=== PATIENT | male | born 1945 | race Caucasian/White ===

== ENCOUNTER 2016-11-19 23:56 | Emergency (ER) | payer MEDICARE, OTHER ==
[2016-11-20] MEDS ORDERED: PHENAZOPYRIDINE 100 MG TAB ONE (00:55)
== END 2016-11-20 04:57 | disposition home or self-care (01) ==
LOC: ER 23:56
CPT/HCPCS: 87077; 87186

== ENCOUNTER 2016-12-15 06:15 | Inpatient (IN) | payer MEDICARE, OTHER ==
[2016-12-13 14:17] VITALS: BMI 32.0
[2016-12-14 13:58] VITALS: BMI 32.0
[~2016-12-15] VITALS: Ht 167.6 cm; Wt 89.4 kg
[2016-12-15] VITALS (19 sets, daily range): BP systolic 94–128; RESP 12–21; TEMP 97.5–99.5; Ht 167.6 cm; Wt 89.4 kg
[~2016-12-15 06:15] MED LIST: LEVOFLOXACIN 500 MG/100 ML 100 ML IV ONE
[2016-12-15] MEDS ORDERED: GLYCOPYRROLATE 0.2 MG/ML VIAL IV ONE (07:00)
[2016-12-15] MEDS ORDERED: LACT RINGERS 1,000 ML IV SCH (07:00)
[2016-12-15] MEDS ORDERED: LIDOCAINE 1% BUFFERED 1 ML SYR INTRADERM PRN (07:00)
[2016-12-15] MEDS ORDERED: MIDAZOLAM 2 MG/2 ML INJ IV ONE (07:00)
[2016-12-15] MEDS ORDERED: MORPHINE 2 MG/ML SYR IV PRN (07:55)
[2016-12-15] MEDS ORDERED: MORPHINE 4 MG/ML SYR IV PRN (07:55)
[2016-12-15] MEDS ORDERED: ONDANSETRON 4 MG VIAL IV PRN ×2 (07:55→08:50)
[2016-12-15] MEDS ORDERED: DILAUDID 1 MG/ML AMP IV PRN ×2 (07:55→08:50)
[2016-12-15] MEDS ORDERED: OXYCODONE 5 MG TAB PO PRN (07:55)
[2016-12-15] MEDS ORDERED: MEPERIDINE 25 MG/ML IV PRN (07:55)
[2016-12-15] MEDS ORDERED: LEVOFLOXACIN 500 MG/100 ML 100 ML IV SCH (09:00)
[2016-12-15] MEDS: SODIUM CHLORIDE 0.45% 1,000 ML IV SCH ×2 (09:27→17:55)
[2016-12-15] MEDS ORDERED: PROPOFOL 50ML VIAL IV ONE (10:27)
[2016-12-15] MEDS ORDERED: FENTANYL 100 MCG/2 ML AMP IV ONE (10:27)
[2016-12-15] MEDS: OXYCODONE 5 MG TAB PO PRN ×2 (11:00→22:03)
[2016-12-15] MEDS: FOLIC ACID PO SCH (12:48)
[2016-12-15] MEDS: GABAPENTIN 600 MG TAB PO SCH ×3 (12:48→21:59)
[2016-12-15] MEDS: IRON PO SCH (12:48)
[2016-12-15] MEDS: LORATADINE 10 MG TAB PO SCH (12:48)
[2016-12-15] MEDS: CYANOCOBALAMIN PO SCH (12:48)
[2016-12-15] MEDS: CLOPIDOGREL 75 MG TAB PO SCH (12:48)
[2016-12-15] MEDS: Meclizine HCl 25 MG TAB PO SCH ×2 (12:48→21:57)
[2016-12-15] MEDS: LISINOPRIL/HCTZ 10/12.5 TAB PO SCH ×2 (12:48→21:58)
[2016-12-15] MEDS ORDERED: MISSING DOSE XX ONE (12:55)
[2016-12-15] MEDS: ASPIRIN 81 MG CHEW TAB PO SCH (13:51)
[2016-12-15] MEDS: METOPROLOL TART 25 MG TAB PO SCH (21:57)
[2016-12-15] MEDS: TAMSULOSIN 0.4 MG CAP PO SCH (21:57)
[2016-12-15] MEDS: Atorvastatin 10 MG TAB PO SCH (21:57)
[2016-12-15] MEDS: EZETIMIBE 10 MG TAB PO SCH (21:58)
[2016-12-15] MEDS: ZOLPIDEM 5 MG TAB PO PRN (23:12)
[2016-12-16] MEDS: SODIUM CHLORIDE 0.45% 1,000 ML IV SCH (02:58)
[2016-12-16 04:03] VITALS: BP_SYST 100; RESP 18; TEMP 98.8
[2016-12-16 07:59] VITALS: BP_SYST 120; RESP 18; TEMP 99.1
[2016-12-16] MEDS ORDERED: LEVOFLOXACIN 500 MG/100 ML 100 ML IV SCH (09:00)
[2016-12-16] MEDS: GABAPENTIN 600 MG TAB PO SCH ×3 (10:37→22:08)
[2016-12-16] MEDS: ASPIRIN 81 MG CHEW TAB PO SCH (10:37)
[2016-12-16] MEDS: CLOPIDOGREL 75 MG TAB PO SCH (10:37)
[2016-12-16] MEDS: LORATADINE 10 MG TAB PO SCH (10:37)
[2016-12-16] MEDS: Meclizine HCl 25 MG TAB PO SCH ×2 (10:37→22:08)
[2016-12-16] MEDS: LISINOPRIL/HCTZ 10/12.5 TAB PO SCH ×2 (10:38→21:00)
[2016-12-16] MEDS: IRON PO SCH (10:38)
[2016-12-16] MEDS: CYANOCOBALAMIN PO SCH (10:38)
[2016-12-16] MEDS: FOLIC ACID PO SCH (10:38)
[2016-12-16] MEDS: OXYCODONE 5 MG TAB PO PRN ×2 (10:43→20:06)
[2016-12-16 11:25] VITALS: BP_SYST 118; RESP 18; TEMP 98.5
[2016-12-16 15:18] VITALS: BP_SYST 116; RESP 18; TEMP 98.3
[2016-12-16 19:29] VITALS: BP_SYST 140; RESP 18; TEMP 97.9
[2016-12-16] MEDS: METOPROLOL TART 25 MG TAB PO SCH (22:08)
[2016-12-16] MEDS: EZETIMIBE 10 MG TAB PO SCH (22:08)
[2016-12-16] MEDS: METRONIDAZOLE 500 MG TAB PO SCH (22:08)
[2016-12-16] MEDS: Atorvastatin 10 MG TAB PO SCH (22:08)
[2016-12-16] MEDS: TAMSULOSIN 0.4 MG CAP PO SCH (22:09)
[2016-12-16] MEDS: ZOLPIDEM 5 MG TAB PO PRN (23:03)
[2016-12-16 23:06] VITALS: BP_SYST 130; RESP 18; TEMP 97.6
[2016-12-17 04:10] VITALS: BP_SYST 110; RESP 18; TEMP 97.5
[2016-12-17 07:34] VITALS: BP_SYST 118; RESP 18; TEMP 97.9
[2016-12-17] MEDS: LISINOPRIL/HCTZ 10/12.5 TAB PO SCH ×2 (08:58→21:08)
[2016-12-17] MEDS: FOLIC ACID PO SCH (08:58)
[2016-12-17] MEDS: LORATADINE 10 MG TAB PO SCH (08:58)
[2016-12-17] MEDS: IRON PO SCH (08:58)
[2016-12-17] MEDS: CYANOCOBALAMIN PO SCH (08:58)
[2016-12-17] MEDS: METRONIDAZOLE 500 MG TAB PO SCH ×3 (08:58→21:08)
[2016-12-17] MEDS: Meclizine HCl 25 MG TAB PO SCH ×2 (08:58→21:08)
[2016-12-17] MEDS: GABAPENTIN 600 MG TAB PO SCH ×3 (08:59→21:08)
[2016-12-17 11:27] VITALS: BP_SYST 120; RESP 18; TEMP 98
[2016-12-17 15:52] VITALS: BP_SYST 116; RESP 18; TEMP 98
[2016-12-17 19:45] VITALS: BP_SYST 108; RESP 16; TEMP 98.1
[2016-12-17] MEDS: Atorvastatin 10 MG TAB PO SCH (21:08)
[2016-12-17] MEDS: EZETIMIBE 10 MG TAB PO SCH (21:08)
[2016-12-17] MEDS: TAMSULOSIN 0.4 MG CAP PO SCH (21:08)
[2016-12-17] MEDS: METOPROLOL TART 25 MG TAB PO SCH (21:09)
[2016-12-17 23:24] VITALS: BP_SYST 110; RESP 16; TEMP 98
[2016-12-17] MEDS: ZOLPIDEM 5 MG TAB PO PRN (23:29)
[2016-12-18 04:05] VITALS: BP_SYST 100; RESP 18; TEMP 97.8
[2016-12-18 07:23] VITALS: BP_SYST 99; RESP 16; TEMP 97.9
[2016-12-18] MEDS: LISINOPRIL/HCTZ 10/12.5 TAB PO SCH ×2 (08:04→21:48)
[2016-12-18] MEDS: LORATADINE 10 MG TAB PO SCH (08:04)
[2016-12-18] MEDS: GABAPENTIN 600 MG TAB PO SCH ×3 (08:04→21:48)
[2016-12-18] MEDS: METRONIDAZOLE 500 MG TAB PO SCH ×3 (08:04→21:48)
[2016-12-18] MEDS: CYANOCOBALAMIN PO SCH (08:04)
[2016-12-18] MEDS: FOLIC ACID PO SCH (08:04)
[2016-12-18] MEDS: IRON PO SCH (08:04)
[2016-12-18] MEDS: Meclizine HCl 25 MG TAB PO SCH ×2 (08:05→21:48)
[2016-12-18 11:13] VITALS: BP_SYST 94; RESP 16; TEMP 97
[2016-12-18] MEDS: VANCOMYCIN SUSP 250 MG/5 ML UDC PO SCH ×3 (13:38→21:47)
[2016-12-18 20:41] VITALS: BP_SYST 112; RESP 16
[2016-12-18] MEDS: METOPROLOL TART 25 MG TAB PO SCH (21:47)
[2016-12-18] MEDS: TAMSULOSIN 0.4 MG CAP PO SCH (21:48)
[2016-12-18] MEDS: EZETIMIBE 10 MG TAB PO SCH (21:48)
[2016-12-18] MEDS: Atorvastatin 10 MG TAB PO SCH (21:48)
[2016-12-18] MEDS: ZOLPIDEM 5 MG TAB PO PRN (23:00)
[2016-12-19] VITALS (7 sets, daily range): BP systolic 80–118; RESP 16–18; TEMP 96.2–98
[2016-12-19] MEDS: VANCOMYCIN SUSP 250 MG/5 ML UDC PO SCH ×4 (07:59→20:04)
[2016-12-19] MEDS: CYANOCOBALAMIN PO SCH (08:00)
[2016-12-19] MEDS: LORATADINE 10 MG TAB PO SCH (08:00)
[2016-12-19] MEDS: Meclizine HCl 25 MG TAB PO SCH ×2 (08:00→20:05)
[2016-12-19] MEDS: IRON PO SCH (08:00)
[2016-12-19] MEDS: METRONIDAZOLE 500 MG TAB PO SCH (08:00)
[2016-12-19] MEDS: FOLIC ACID PO SCH (08:00)
[2016-12-19] MEDS: GABAPENTIN 600 MG TAB PO SCH ×3 (08:00→20:05)
[2016-12-19] MEDS: LISINOPRIL/HCTZ 10/12.5 TAB PO SCH (09:00)
[2016-12-19] MEDS: EZETIMIBE 10 MG TAB PO SCH (20:04)
[2016-12-19] MEDS: TAMSULOSIN 0.4 MG CAP PO SCH (20:04)
[2016-12-19] MEDS: Atorvastatin 10 MG TAB PO SCH (20:05)
[2016-12-20 04:16] VITALS: BP_SYST 120; RESP 16; TEMP 98
[2016-12-20 08:13] VITALS: BP_SYST 132; RESP 16; TEMP 97.6
[2016-12-20] MEDS: CYANOCOBALAMIN PO SCH (08:24)
[2016-12-20] MEDS: Meclizine HCl 25 MG TAB PO SCH (08:24)
[2016-12-20] MEDS: FOLIC ACID PO SCH (08:24)
[2016-12-20] MEDS: GABAPENTIN 600 MG TAB PO SCH (08:24)
[2016-12-20] MEDS: LORATADINE 10 MG TAB PO SCH (08:24)
[2016-12-20] MEDS: IRON PO SCH (08:24)
[2016-12-20] MEDS: VANCOMYCIN SUSP 250 MG/5 ML UDC PO SCH ×2 (08:29→13:21)
[2016-12-20] MEDS ORDERED: ASPIRIN EC 81 MG TAB PO SCH (09:00)
[2016-12-20] MEDS ORDERED: SACCHA BOULARDII 250MG CAP PO SCH (10:30)
[2016-12-20 12:44] VITALS: BP_SYST 137; RESP 15; TEMP 97.7
[2016-12-20 13:56] VITALS: BP_SYST 137; RESP 15; TEMP 97.7
== END 2016-12-20 14:47 | disposition home or self-care (01) | DRG 713 ==
LOC: ENRESERVDT → ENRESERVTM → SURG 06:15 → 5THW 10:44 → SURG 12-16 12:37
PROVIDERS: ADMIT Urology; ATTEND Urology
PROC: 0VT08ZZ Resection of Prostate, Via Natural or Artificial Opening Endoscopic (ICD-10-PCS; principal; 2016-12-15 07:35)
DX: N40.1 Benign prostatic hyperplasia with lower urinary tract symptoms (principal); A04.7 Enterocolitis due to Clostridium difficile; I95.9 Hypotension, unspecified; N13.8 Other obstructive and reflux uropathy; N39.0 Urinary tract infection, site not specified; I95.89 Other hypotension; I25.10 Atherosclerotic heart disease of native coronary artery without angina pectoris; N32.89 Other specified disorders of bladder; Z86.14 Personal history of Methicillin resistant Staphylococcus aureus infection; I10 Essential (primary) hypertension; Z95.1 Presence of aortocoronary bypass graft; K21.9 Gastro-esophageal reflux disease without esophagitis; E78.5 Hyperlipidemia, unspecified; I73.9 Peripheral vascular disease, unspecified; Z79.02 Long term (current) use of antithrombotics/antiplatelets; Z79.82 Long term (current) use of aspirin
CPT/HCPCS: 74000; 80048; 80053; 85025; 85610; 85730; 87493; 88305; 99223; 99232